=== PATIENT | male | born 1985 | race Caucasian/White ===

== ENCOUNTER 2017-02-16 22:04 | Emergency (ER) | payer SELFPAY ==
[~2017-02-16] VITALS: Ht 188 cm; Wt 81.6 kg
[~2017-02-16 22:04] MED LIST: ACYCLOVIR 400M400 MG PO; BACTRIM DS 8001 TAB PO; CEFZIL250 MG PO; CLARITIN10 MG OR; NOMEDS XX; PERCOCET 5/3251 EACH PO; PREDNISONE 20MG20 MG PO; SUBOXONE 8 MG-21 FIL SL
--- NOTE | 2017-02-16 23:52 | Emergency Room Report ---
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 N Clinical Suspician of Infection? Y Mental Status: 1 - Regular (Normal Baseline) Sepsis Risk:Low Sepsis Risk Have you (or family members/close friends) recently traveled outside the [place]? N If Yes, where/when: Have you had exposure to infectious disease within the past month? TB? Other? Specify: Source patient, RN notes reviewed, family, old records Exam Limitations no limitations Comment pt with area lt antecubital area progressive over the last few days - he admits hx of iv drug use but denied any recent - no fever/chills and no other lesions or rash Cardiac Chest Pain Chest pain indicative of cardiac No Timing/Duration this evening Severity moderate ALLERGIES Uncoded Allergies: PCN (I-RASH 02/16/17) Home Medications Reported Medications No Known Home Medications History Medical History General CAD? No Angina: No [place]: No Hypertension? Yes Hyperlipidemia? No CHF? No DVT? No PE? No COPD? No Asthma? No Anemia? No GERD? No Gastric ulcers? No GI Bleed? No Hernia? No Thyroid Problems? No Hypothyroidism? No CVA? No Seizures? No Diabetes? No Renal Insuffiency? No End Stage Renal Disease? No UTI? No Stones? No BPH? No GB Disease: No Nephritic Syndrome? No Asplenia? No Hepatitis? No Sickle Cell Disease? No Arthritis? No Migraines? No Cataracts? No Glaucoma? No MRSA? Yes HIV? No TB? No Anxiety? No Depression? No Cancer? No More? No Immunization Hx DT/Tetanus UNKNOWN Surgical Hx Previous Surgery?N Social History Smoking Hx Smoker: Current Every Day Smoker Tobacco: Yes Type Cigarettes Packs/day < 1 Pack Alcohol Alcohol: Yes Drugs none Review of Systems All Other Systems Reviewed and Negative Constitutional denies fever Eyes denies drainage ENT denies: ear pain, epistaxis, throat pain. Respiratory denies cough, denies shortness of breath, denies wheezing Cardiovascular denies chest pain, denies palpitations, denies syncope Gastrointestinal denies abdominal pain, denies diarrhea, denies vomiting Genitourinary denies: dysuria, frequency, hesitancy, hematuria. Musculoskeletal denies back pain, denies joint pain, denies joint swelling, denies neck pain Skin see HPI, denies rash, other Psychiatric/Neurological denies headache, denies seizure Physical Exam Vital Signs Vital Signs Date Time Temp Pulse Resp B/P Pulse O2 O2 Flow FiO2 Ox Delivery Rate 02/167 97.6 64 18 139/76 100 - WBC >12,000 or <4,000 or 10% bands? 2 or more SIRS Criteria Met? B/P:139/76 MAP:97 Creatinine >2.0? UA output<0.5ml/kg/hr for 2 hrs? Platelet count >100,000? Lactate >2.0mmol/1? INR >1.2 or PTT > than 60 sec? Evidence of Organ Dysfunction? Provider documented clinical suspician of infection? Y Sepsis Criteria Count: 1 Sepsis Risk: Low Sepsis Risk General Appearance no apparent distress Eye Exam - bilateral eye PERRL, bilateral eye EOMI Ear, Nose, Throat normal ENT inspection Neck supple Respiratory Status No: respiratory distress. Cardiovascular regular rate/rhythm, no gallop, no JVD, no murmur, no rub Peripheral Pulses Pulses normal Yes Gastrointestinal soft Extremities normal inspection, no calf tenderness Strength 4 Upper Ext (L), 4 Upper Ext (R), 4 Lower Ext (L), 4 Lower Ext (R) Neurologic alert, records management analyst II-XII nml as tested, no motor/sensory deficits Reflexes Reflexes normal No Mental status normal mood/affect Skin indurated cellulitis lt antecubital fossa Medical Decision Making LABS/Meds/Orders Pt receiving controlled substance in ED? No Results/Orders Laboratory Tests 02/16/17 0025: Lactic Acid 1.5 02/16/17 0025: Sodium 139, Potassium 3.6, Chloride 102, Carbon Dioxide 30, BUN 13, Creatinine 0.9, Estimated Creat Clear 139, Estimated GFR (MDRD) 99, Glucose 86, Calcium 8.6 , Total Bilirubin 0.2, AST 69 H, ALT 149 H, Alkaline Phosphatase 78, Total Protein 7.3, Albumin 3.8, Globulin 3.5 H, Albumin/Globulin Ratio 1.1, WBC 10.7, RBC 4.45 L, Hgb 13.8 L, Hct 40.4 L, MCV 90.7, RDW 12.5, Plt Count 241, MPV 7.9, Gran % 46.5, Gran # 5.0, Lymphocytes % 44.7, Monocytes % 5.8, Eosinophils % 2.5, Basophils % 0.5, Lymphocytes # 4.8 H, Monocytes # 0.6, Eosinophils # 0.3, Basophils # 0.1, PUBS MCHC 33.9, ESR Pending, MCH 30.7 Current Medication Orders Sig/Aparna Start time Last Medication Dose Route Stop Time Status Admin Vancomycin HCl 0 .STK-MED ONE 02/17 51 DC .ROUTE Sodium Chloride 250 ML .STK-MED ONE 02/17 50 DC IV Sodium Chloride 10 ML PRN PRN 02/16 2345 AC IV 02/17 2353 Vancomycin HCl See Dose ONCE ONE 02/16 2345 DC Insts (1) IV 02/16 2346 Vancomycin HCl 1,750 MG ONCE ONE 02/16 2345 CKDr 02/17 Sodium Chloride 250 ML IV 02/17 0144 0051 Dose Instructions: (1)Vancomycin HCl: CONTACT PHARMACY FOR DOSING Orders Procedure Date/time Status IV SALINE LOCK 02/16 2354 Active CULTURE, BLOOD 02/16 2354 Active LACTIC ACID 02/16 2354 Complete SED RATE 02/16 2354 Active C-REACTIVE PROTEIN 02/16 2354 Complete COMPLETE METABOLIC PANEL 02/16 2354 Complete CBC WITH AUTO DIFF 02/16 2354 Active Departure Departure Time of Disposition 0127 Disposition DC Home or Self Care(routine) Clinical Impression Primary Impression: Cellulitis Qualifiers: Site of cellulitis: extremity Site of cellulitis of extremity: upper extremity Laterality: left Qualified Code: L03.114 - Cellulitis of left upper limb Condition STABLE Patient Instructions DI for Cellulitis -- Adult Additional Instructions warm compresses and see pcp for follow up Discharge Counseling Counseled pt/family regarding diagnosis, test results, medications/RX, follow up needs Prescriptions Current Visit Scripts CEPHALEXIN (Keflex 500MG Capsule) 500 MG PO Q8H #30 CAP SULFAMETHOXAZOLE/TRIMETHOPRIM (Sulfamethoxazole-Tmp Ds Tablet) 1 TAB PO BID #20 TAB ED Critical Care Critical Care No at 0130
[2017-02-17 00:49] LABS: LYMPH # 4.8 K/mm3 (0.7-4.5); LYMPH % 44.7 % (10-50)
[2017-02-17 01:07] LABS: HEMOGLOBIN 13.8 g/dL (14.1-18.0)
[2017-02-17] MEDS ORDERED: SEPTRA DS 800 M1 TAB PO (01:29)
[2017-02-17] MEDS ORDERED: KEFLEX 500MG.500 MG PO (01:29)
[2017-02-17 01:54] VITALS: BP 151/74
== END 2017-02-17 01:54 | disposition home or self-care (01) ==
LOC: ER 22:04
PROVIDERS: Emergency Medicine
DX: L03.114 Cellulitis of left upper limb (principal); I10 Essential (primary) hypertension; Z72.0 Tobacco use
CPT/HCPCS: J3370

== ENCOUNTER 2017-05-11 11:45 | Emergency (ER) | payer SELFPAY ==
[~2017-05-11] VITALS: Ht 190.5 cm; Wt 81.6 kg
[~2017-05-11 11:45] MED LIST changes: +KEFLEX 500MG.500 MG PO; +SEPTRA DS 800 M1 TAB PO
--- OUTSIDE RECORDS SUMMARY | 2017-05-11 11:49 | External Medical Summary Rpt | CCD ---
Author Author [employer] Organization [employer] Address Unknown Phone Unavailable Purpose Continuity of Care Document - through 2016
--- OUTSIDE RECORDS SUMMARY | 2017-05-11 11:49 | External Medical Summary Rpt | CCD ---
Author Author , VIRGINIA COLEMAN Address Unknown Phone [email or web address] Immunization Name Date Rout CVX Reac Dose Comm Prov Is Faci e tion ent ider Refu lity Give sed n Hep 09-1 8 999 Hist H201 No H201 B, 9- oric ped/ 02 al adol Info rmat ion - Sour ce Unsp ecif ied Hep 08-0 8 999 Hist H201 No H201 B, 7-20 oric ped/ 02 al adol Info rmat ion - Sour ce Unsp ecif ied Td 08-0 9 999 Hist H201 No H201 (paz 7- oric lt), 02 al Info adso rmat rbed ion - Sour ce Unsp ecif ied
--- OUTSIDE RECORDS SUMMARY | 2017-05-11 11:49 | External Medical Summary Rpt ---
Author Author [place] [employer], STEVENANUEL [employer] Organization [employer] Address Unknown Phone Unavailable Results CBC W Auto Differential panel in Blood Observa Value Referen Units Interpr Notes Date tion ce etation Range Basophils 0 - 0.2 K/MM3 Normal No Feb 16 inform2016 [#/volume on in 12:25 AM ] in source Blood by data Automated count Basophils 0.1 - 2.0 % Normal No Feb 16 inform2016 leukocyte on in 12:25 AM s in source Blood by data Automated count Eosinophi 0.0 - 0.4 K/mm3 Normal No Feb 16 ls 2016 [#/volume on in 12:25 AM ] in source Blood by data Automated count Eosinophi 0.1 - % Normal No Feb 16 ls/100 12.0 inform2016 leukocyte on in 12:25 AM s in source Blood by data Automated count Granulocy 1.3 - 8.0 K/mm3 Normal No Feb 16 yoni 2016 [#/volume on in 12:25 AM ] in source Blood by data Automated count Granulocy 37.0 - % Normal No Feb 16 yoni/100 80.0 2016 leukocyte on in 12:25 AM s in source Blood by data Automated count Hematocri 42.0 - % Low No Feb 16 t [Volume 52.0 ati 2016 on in 12:25 AM Fraction] source of Blood data Hemoglobi 14.1 - g/dL Low No Feb 16 n 18.0 2016 [Mass/vol on in 12:25 AM ume] in source Blood data Lymphocyt 0.7 - 4.5 K/mm3 High No Feb 16 es inform2016 [#/volume on in 12:25 AM ] in source Unspecifi data ed specimen by Automated count Lymphocyt 10 - 50 % Normal No Feb 16 es inform2016 [#/volume on in 12:25 AM ] in source Unspecifi data ed specimen by Automated count Erythrocy 27 - 31.2 pg Normal No Feb 16 te mean 2016 corpuscul on in 12:25 AM ar source hemoglobi data n [Entitic mass] Erythrocy 31.8 - g/dl Normal No Feb 16 te mean 35.4 2016 corpuscul on in 12:25 AM ar source hemoglobi data n concentra tion [Mass/vol ume] by Automated count Erythrocy 82.2 - fl Normal No Feb 16 te mean 97.8 2016 corpuscul on in 12:25 AM ar volume source [Entitic data volume] by Automated count Monocytes 0.1 - 1.0 K/mm3 Normal No Feb 16 inform2016 [#/volume on in 12:25 AM ] in source Blood by data Automated count Monocytes 1.7 - 9.3 % Normal No Feb 16 /100 2016 leukocyte on in 12:25 AM s in source Blood by data Automated count Platelet 7.4 - fl Normal No Feb 16 mean 10.4 2016 volume on in 12:25 AM [Entitic source volume] data in Blood by Automated count Platelets 142 - 424 K/mm3 Normal No Feb 162016 [#/volume on in 12:25 AM ] in source Blood data Erythrocy 4.6 - 6.2 M/mm3 Low No Feb 16 yoni 2016 [#/volume on in 12:25 AM ] in source Amniotic data fluid Erythrocy 11.5 - % Normal No Feb 16 te 17.5 2016 distribut on in 12:25 AM ion width source [Entitic data volume] by Automated count Leukocyte 4.8 - K/MM3 Normal No Feb 16 s 10.8 2016 [#/volume on in 12:25 AM ] in source Blood data Erythrocyte sedimentation rate by Westergren method Observa Value Referen Units Interpr Notes Date tion ce etation Range Erythrocy 0 - 15 mm/hr Normal No Feb 16 te 2016 sedimenta on in 12:25 AM tion rate source by data Westergre n method Comprehensive metabolic 2000 panel in Serum or Plasma Observa Value Referen Units Interpr Notes Date tion ce etation Range Albumin/G 1.1 - 1.8 No Normal No Feb 16 lobulin informati 2016 [Mass on in on in 12:25 AM ratio] in source source Serum or data data Plasma Albumin 3.4 - 5.0 gm/dL Normal No Feb 16 [Mass/vol informati 2017 ume] in on in 12:25 AM Serum or source Plasma data Alkaline 46 - 116 U/L Normal No Feb 16 phosphata informati 2016 se on in 12:25 AM [Enzymati source c data activity/ volume] in Serum or Plasma Bilirubin 0.2 - 1.0 mg/dL Normal No Feb 16 .total informati 2016 [Mass/vol on in 12:25 AM ume] in source Serum or data Plasma Urea 7 - 18 mg/dL Normal No Feb 16 nitrogen informati 2016 [Mass/vol on in 12:25 AM ume] in source Serum or data Plasma Calcium 8.5 - mg/dL Normal No Feb 16 [Mass/vol 10.1 informati 2016 ume] in on in 12:25 AM Serum or source Plasma data Chloride 98 - 107 mmoL/L Normal No Feb 16 [Moles/vo informati 2016 lume] in on in 12:25 AM Serum or source Plasma data Carbon 21.0 - mmoL/L Normal No Feb 16 dioxide, 32.0 informati 2016 total on in 12:25 AM [Moles/vo source lume] in data Serum or Plasma Creatinin 0.70 - mg/dL Normal No Feb 16 e 1.30 informati 2016 [Mass/vol on in 12:25 AM ume] in source Serum or data Plasma Creatinin 50 - 200 ML/MIN Normal No Feb 16 e renal informati 2017 clearance on in 12:25 AM source predicted data by Cockcroft -Gault formula Estimated >60 ML/MIN No REFERENCE Feb 16 informati RANGE: 2017 glomerula on in >60 12:25 AM r source ML/MIN/1. filtratio data 73 SQUARE n rate METERSIf (GF this patient is -A merican, then multiply theresult by 1.210. Globulin 1.3 - 3.2 gm/dL High No Feb 16 [Mass/vol informati 2017 ume] in on in 12:25 AM Serum source data Glucose 74 - 106 mg/dL Normal No Feb 16 [Mass/vol informati 2016 ume] in on in 12:25 AM Serum or source Plasma data Potassium 3.5 - 5.1 mmoL/L Normal No Feb 16 informati 2016 [Moles/vo on in 12:25 AM lume] in source Serum or data Plasma Sodium 136 - 145 mmoL/L Normal No Feb 16 [Moles/vo informati 2017 lume] in on in 12:25 AM Serum or source Plasma data Aspartate 15 - 37 U/L High No Feb 16 informati 2016 aminotran on in 12:25 AM sferase source [Enzymati data c activity/ volume] in Serum or Plasma Alanine 12 - 78 U/L High No Feb 16 aminotran informati 2016 sferase on in 12:25 AM [Enzymati source c data activity/ volume] in Serum or Plasma Protein 6.4 - 8.2 gm/dL Normal No Feb 16 [Mass/vol informati 2017 ume] in on in 12:25 AM Serum or source Plasma data CRP Observa Value Referen Units Interpr Notes Date tion ce etation Range CRP 0.0 - 0.9 MG/DL Normal No Feb 16 inform2016 on in 12:25 AM source data Lactate [Moles/volume] in Blood Observa Value Referen Units Interpr Notes Date tion ce etation Range Lactate 0.4 - 2.0 mmol/L Normal No Feb 16 [Moles/vo informati 2017 lume] in on in 12:25 AM Blood source data
--- OUTSIDE RECORDS SUMMARY | 2017-05-11 11:49 | External Medical Summary Rpt | CCD ---
Author Author , VIRGINIA COLEMAN Address Unknown Phone [email or web address] Immunization Name Date Rout CVX Reac Dose [...]
--- OUTSIDE RECORDS SUMMARY | 2017-05-11 11:49 | External Medical Summary Rpt | CCD ---
Author Author , [place] Organization VIRGINIA Address Unknown Phone [email or web address] Care Team Providers Care Store Administrator Name Role Phone Kayleigh Huizar MD, Unavailable Unavailable Kayleigh Huizar MD Purpose Continuity of Care Document - 06-05-2013 through 2016 Problems Code Diagnosis DOS Provider Status 305.1 305.1 06-05-2013 [place] TOBACCO USE [facility] 351.0 351.0 06-05-2013 [facility] L03.90 CELLULITIS, UNSPECIFIED R07.89 OTHER CHEST PAIN R74.8 ABNORMAL LEVELS OF OTHER SERUM ENZYMES Allergies, Adverse Reactions, Alerts Type Allergy to substance Adverse Reaction to Substance Substance Reaction Severity NO KNOWN ALLERGIES Unknown Unknown Medications Na ND Rx Da Fi Fi Am Da Di Ph RX Ph St me C No te ll ll ou ys ag ar # ys at rm s nt no ma ic us Or Da si cy ia de te s n re d AC 00 12 0 No YC 09 -1 LO 38 2- Lo 94 20 ng R 30 13 er 40 1 0 Ac MG ti ve TA BL ET DE 00 12 0 No ED 05 -1 NI 40 2- Lo SO 01 20 ng NE 82 13 er 0 20 Ac ti MG ve TA BL ET Vital Signs 06-05-2013 02:43 Name Value Interpretat Reference Comment ion Range BP 60 mm[Hg] Diastolic BP Systolic 133 mm[Hg] Heart 57 /min Rate/Pulse O2% 98 % Respiratory 20 /min Rate 06-05-2013 02:22 Name Value Interpretat Reference Comment ion Range BP 90 mm[Hg] Diastolic BP Systolic 146 mm[Hg] Heart 62 /min Rate/Pulse O2% 98 % Respiratory 20 /min Rate Encounters Encounter Start End Date Code Location Performer Type Date Emergency KRYSTINA Huizar MD (ER) 3 01:32 3 02:44 [facility]
--- OUTSIDE RECORDS SUMMARY | 2017-05-11 11:49 | External Medical Summary Rpt ---
Author Author [employer], STEVENANUEL Production Organization [employer] Address [...]
--- OUTSIDE RECORDS SUMMARY | 2017-05-11 11:49 | External Medical Summary Rpt | CCD ---
Author Author , [place]IA Organization V[place] Address Unknown Phone [email or web address] Care Team Providers Care Press Feeder [employer] Name Role Phone Kayleigh Huizar MD, Unavailable Unavailable Kayleigh Huizar MD Purpose Continuity of Care Document - 06-05-2013 through 2016 Problems Code Diagnosis DOS Provider Status 305.1 305.1 06-05-2013 [place] TOBACCO USE [facility] 351.0 351.0 06-05-2013 [facility] L03.90 CELLULITIS, UNSPECIFIED R07.89 OTHER CHEST PAIN [...] Ac MG ti ve TA BL ET MS 00 12 0 No ED 05 -1 [...] Huizar MD (ER) 3 01:32 3 02:44 [facility]
[2017-05-11 12:51] VITALS: BP 144/90
[2017-05-11] MEDS ORDERED: BACTRIM DS 8001 TA1 PO (12:52)
[2017-05-11] MEDS ORDERED: BACTROBAN2% TP (12:52)
--- NOTE | 2017-05-11 12:52 | Urgent Treatment Center Report ---
History of Present Issue Date/Time Seen by Provider 05/11/17 1227 Visit Reason Pt arrived:Walked Presenting Problem:PT C/O ABCESS ON LEFT AC AND BACK OF HEAD. Location if Accident: Onset of symptoms date/time:/ or onset unknown for:MEDICAL HX UNKNOWN Have you (or family members/close friends) recently traveled outside the [place]? N If Yes, where/when: Have you had exposure to infectious disease within the past month? TB? Other? Specify: Patient states that he has had several abcesses prior to this visit. States that he has a history of IV drug use and noticed yesterday that he was having swelling again in his Left AC area and it was red and sore State that last night he tried to open it up and get it draining however was unsuccessful so he came in today to get seen and started on antibiotics if needed ALLERGIES Uncoded Allergies: PCN (I-RASH 02/16/17) History Medical History General CAD? No Angina: No [place]: No Hypertension? Yes Hyperlipidemia? No CHF? No DVT? No PE? No COPD? No Asthma? No Anemia? No GERD? No Gastric ulcers? No GI Bleed? No Hernia? No Thyroid Problems? No Hypothyroidism? No CVA? No Seizures? No Diabetes? No Renal Insuffiency? No UTI? No Stones? No BPH? No GB Disease: No Nephritic Syndrome? No Asplenia? No Hepatitis? No Sickle Cell Disease? No Arthritis? No Migraines? No Cataracts? No Glaucoma? No MRSA? Yes HIV? No TB? No Anxiety? No Depression? No Cancer? No More? No Immunization HX DT/Tetanus UNKNOWN Surgical Hx Previous Surgery?N Social History Smoking Hx Smoker: Current Every Day Smoker Tobacco: Yes Type Cigarettes Packs/day < 1 Pack Alcohol Alcohol: Yes Review of Systems All Other Systems Reviewed and Negative Comment Abcess on left ac area and back of neck Physical Exam Vital Signs Vital Signs Date Time Temp Pulse Resp B/P Pulse O2 O2 Flow FiO2 Ox Delivery Rate 05/11 1251 98.1 85 20 144/90 98 05/11 1200 98.1 85 20 144/90 98 General Appearance normal appearance, WD/WN, no apparent distress Neck small abcess area on back of neck draining noted Respiratory Status Yes: trachea midline, chest symmetrical, non tender chest. No: respiratory distress. Lung Sounds bilateral: normal breath sounds, lungs clear. Cardiovascular normal exam, regular rate/rhythm, no peripheral edema Extremities Pain, swelling and redness of left ac area with drainage of puss noted, culture collected and sent to lab, area approximately 3x3 and state that he reports that he is an iv drug user and area arose after he missed his vein Neurologic alert, normal exam, oriented x 3 Medical Decision Making LABS/Meds/Orders Pt receiving controlled substance in ED? No Results/Orders Orders Procedure Date/time Status ABCESS CULTURE 05/11 1214 Active Procedures Incision and Drainage Incision and Drainage Risks/benefits discussed with pt/guardian? Yes Problem type Abcess Location Left ac, back of neck Size cm 3.0 Anesthesia None I & D Procedure Simple, betadine prep, sterile drapes applied, Pus large amount, Cultured, Irrigation ml- (50), Sterile Dressing Applied. Departure Departure Time of Disposition 1248 Disposition DC Home or Self Care(routine) Clinical Impression Primary Impression: Abscess Condition STABLE Referrals Akin Neville MD: Today after leaving ER MELANIE QUICK MD Patient Instructions Cellulitis, DI for Boils Additional Instructions Make sure you call and follow up with Dr Quick/Jamin in the surgical department as advised in the office today Take medication as prescribed Over the counter Motrin or Tylenol as needed for pain Return if needed FOllow up with family doctor to get results of your wound culture that was collected today If you see any streaks, warmth or worsening of symptoms go straight to ER *Start antibiotic(s) immediately and be sure to take as ordered for the FULL length of time although you may be feeling better or start to see improvement in the next 24-48 hours *Monitor closely. Outlined redness so that you can monitor easier. Follow up immediately for new or worsening symptoms including but not limited to redness, swelling, streaking from site fever or chills. *Warm compress 15 minutes 3-4 times day *Never squeeze or pop these on your own. Seek immediate medical attention next time this occurs *Monitor Temp. Tylenol every 4 hours as needed and ibuprofen every 6 hours as needed (as long as your primary care doctor has told you that it is ok to take both. For fever, aches, pain. ER if no less that 101 despite Tylenol and ibuprofen Discharge Counseling Counseled pt/family regarding diagnosis, medications/RX, home care, follow up needs Prescriptions Current Visit Scripts SULFAMETHOXAZOLE W/TRIMETHOPRI (Bactrim Ds Tab) 1 TABLET PO BID #20 TAB MUPIROCIN 2% (Bactroban Oint) 1 STEVEN TP BID #1 TUBE at 1256
[2017-05-12] MEDS ORDERED: CLINDAMYCIN HC300 MG PO (13:52)
== END 2017-05-11 12:54 | disposition home or self-care (01) ==
LOC: UTC 11:45
PROC: 0H94XZZ Drainage of Neck Skin, External Approach (ICD-10-PCS; principal; 2017-05-11)
DX: L02.11 Cutaneous abscess of neck (principal); Z88.0 Allergy status to penicillin; I10 Essential (primary) hypertension; F17.210 Nicotine dependence, cigarettes, uncomplicated

== ENCOUNTER 2017-05-12 13:25 | Emergency (ER) | payer OTHER ==
[~2017-05-12] VITALS: Ht 190.5 cm; Wt 88.9 kg
[~2017-05-12 13:25] MED LIST changes: +BACTRIM DS 8001 TA1 PO; +BACTROBAN2% TP
--- OUTSIDE RECORDS SUMMARY | 2017-05-12 13:43 | External Medical Summary Rpt ---
[...] - 2.0 % Normal No Feb 16 / inform2016 leukocyte on in 12:25 AM s [...]
--- OUTSIDE RECORDS SUMMARY | 2017-05-12 13:43 | External Medical Summary Rpt | CCD ---
Author Author , VIR[place]IA Organization VIR[place]IA Address Unknown Phone [email or web address] Care Team Providers Care [employer] Rep Name Role Phone Kayleigh Huizar MD, Unavailable Unavailable Kayleigh Huizar MD Purpose Continuity of Care Document - 06-05-2013 through 2016 Problems Code Diagnosis DOS Provider Status 305.1 305.1 06-05-2013 [place] TOBACCO USE [facility] 351.0 351.0 06-05-2013 [facility] L03.90 CELLULITIS, UNSPECIFIED R07.89 OTHER [...] Ac MG ti ve TA BL ET SC 00 12 0 No ED 05 -1 [...] Huizar MD (ER) 3 01:32 3 02:44 [facility]
--- OUTSIDE RECORDS SUMMARY | 2017-05-12 13:43 | External Medical Summary Rpt | CCD ---
Author Author , [place]IA Organization VIR[place]IA Address Unknown Phone [email or web address] Care Team Providers Care Business Editor Name Role Phone Kayleigh Huizar MD, Unavailable Unavailable Kayleigh Huizar MD Purpose Continuity of Care Document - 06-05-2013 through 2016 Problems Code Diagnosis DOS Provider Status 305.1 305.1 06-05-2013 [place] TOBACCO USE [facility] 351.0 351.0 06-05-2013 [facility] L03.90 CELLULITIS, UNSPECIFIED R07.89 OTHER CHEST [...] Ac MG ti ve TA BL ET [place] 00 12 0 No ED 05 -1 [...] Huizar MD (ER) 3 01:32 3 02:44 [facility]
--- OUTSIDE RECORDS SUMMARY | 2017-05-12 13:43 | External Medical Summary Rpt | CCD ---
Author Author , VIRGINIA COLEMAN Address Unknown Phone .[employer] Immunization Name Date Rout CVX Reac Dose Comm Prov Is Faci e tion ent ider Refu lity Give sed n Hep 09-1 8 999 Hist H201 No H201 B, 9- oric ped/ 02 al adol Info rmat ion - Sour ce Unsp ecif ied Td 08-0 9 999 Hist H201 No H201 (paz 7-20 oric lt), 02 al Info adso rmat rbed ion - Sour ce Unsp ecif ied Hep 08-0 8 999 Hist H201 No H201 B, -20 oric ped/ 02 al adol Info rmat ion - Sour ce Unsp ecif ied
--- OUTSIDE RECORDS SUMMARY | 2017-05-12 13:43 | External Medical Summary Rpt | CCD ---
Author Author , VIRGINIA COLEMAN Address Unknown Phone [email or web address] Immunization Name Date Rout CVX Reac Dose [...]
--- NOTE | 2017-05-12 13:44 | Emergency Room Report ---
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 N Clinical Suspician of Infection? N Mental Status: 1 - Regular (Normal Baseline) Sepsis Risk:Low Sepsis Risk Have you (or family members/close friends) recently traveled outside the [place]? N If Yes, where/when: Have you had exposure to infectious disease within the past month? TB? Other? Specify: Patient is brought in custody of police for medical clearance he states he has had an I and D on an area of heroin injection on his LEFT arm that has gotten better as I indeed yesterday. States he does not know when his last tetanus shot was she states he has not picked up the antibiotics from yesterday as of yet. He states that he has an area of swelling on the back of his neck that is gotten worse and has been intermittently draining some possible. He denies any other complaints ALLERGIES Coded Allergies: Penicillins (05/12/17) Home Medications Active Scripts SULFAMETHOXAZOLE W/TRIMETHOPRI (Bactrim Ds Tab) 1 TABLET PO BID #20 TAB Prov: 05/11/17 MUPIROCIN 2% (Bactroban Oint) 1 STEVEN TP BID #1 TUBE Prov: 05/11/17 History Medical History General CAD? No Angina: No [place]: No Hypertension? Yes Hyperlipidemia? No CHF? No DVT? No PE? No COPD? No Asthma? No Anemia? No GERD? No Gastric ulcers? No GI Bleed? No Hernia? No Thyroid Problems? No Hypothyroidism? No CVA? No Seizures? No Diabetes? No Renal Insuffiency? No End Stage Renal Disease? No UTI? No Stones? No BPH? No GB Disease: No Nephritic Syndrome? No Asplenia? No Hepatitis? No Sickle Cell Disease? No Arthritis? No Migraines? No Cataracts? No Glaucoma? No MRSA? Yes HIV? No TB? No Anxiety? No Depression? No Cancer? No More? No Immunization Hx Ped.Immunizations UTD Yes DT/Tetanus UNKNOWN Surgical Hx Previous Surgery?N Social History Smoking Hx Smoker: Current Every Day Smoker Tobacco: Yes Type N/A Packs/day < 1 Pack Alcohol Alcohol: Yes Review of Systems All Other Systems Reviewed and Negative Physical Exam Vital Signs Vital Signs Date Time Temp Pulse Resp B/P Pulse O2 O2 Flow FiO2 Ox Delivery Rate 05/12 1332 98.2 88 18 170/88 99 General Appearance: Nontoxic Head: Normocephalic, without obvious abnormality, atraumatic. Eyes: conjunctiva/corneas clear ENT: Mucous membranes moist. Neck: No jugular venous distention. Back patient's neck he has an abscess around 1 cm Cardiac: regular rate and rhythm Lungs: Clear to auscultation bilaterally Abdomen: Nontender, Nondistended, positive bowel sounds, no rebound : No CVA tenderness Extremities: no edema Musculoskeletal: No chest wall tenderness Patient's LEFT arm has an area that has been I and D and is open there is no active purulence he states the swelling is much better than it had been. Multiple areas of track lazo Whether active sites of infection noted Skin: No rashes or lesions to exposed skin. Neurologic: Alert. No gross focal deficits Psychiatric: Normal affect ([place], Marcus) General Appearance normal appearance Respiratory Status No: respiratory distress. Cardiovascular normal exam Neurologic alert Medical Decision Making LABS/Meds/Orders Pt receiving controlled substance in ED? No Results/Orders Current Medication Orders Sig/Aparna Start time Last Medication Dose Route Stop Time Status Admin Lidocaine/Epinephrine 1 ML ONCE ONE 05/12 1415 DC 05/12 SC 05/12 1416 1419 Diphtheria/Pertussis/ 0 .STK-MED ONE 05/12 1409 DC Tetanus Vacc IM Lidocaine/Epinephrine 0 .STK-MED ONE 05/12 1409 DC .ROUTE Clindamycin HCl 0 .STK-MED ONE 05/12 1408 DC PO Clindamycin HCl 300 MG ONCE ONE 05/12 1345 DC 05/12 PO 05/12 1346 1411 Tetanus/Diphtheria 0.5 ML ONCE ONE 05/12 1345 DC 05/12 Toxoids Adsorbed IM 05/12 1346 1413 Procedures Incision and Drainage Incision and Drainage Risks/benefits discussed with pt/guardian? Yes Problem type Abcess Location neck Size cm 1.0 Anesthesia Lidocaine 2% Blade Size 11 I & D Procedure no: Complex. Progress Kamlesh was sterilely prepped and draped with Betadine was anesthetized with 2 mL of lidocaine with epinephrine and it was I and D 1 cm incision parallel material was drained and packing was placed. The drainage was consolidated and it looked like it might be consistent with a cyst that got infected. I told the patient to make sure he takes all his antibiotics and that he may need to have follow-up on the area if there is a cyst present. Departure Departure Time of Disposition 1433 Disposition DC Home or Self Care(routine) Clinical Impression Primary Impression: Abscess Secondary Impressions: Heroin abuse Condition STABLE Patient Instructions Chemical Dependency (Narcotic) (Alternative Therapy), DI for Skin Abscess Additional Instructions Keep packing in for 24 hours taking her antibiotic as prescribed Discharge Counseling Counseled pt/family regarding diagnosis, medications/RX, home care, follow up needs Prescriptions Current Visit Scripts Clindamycin Hcl (Clindamycin 300MG) 300 MG PO QID #28 CAP ED Critical Care Critical Care No at 1438
[2017-05-12] MEDS ORDERED: CLINDAMYCIN HC300 MG PO (13:52)
[2017-05-12 14:52] VITALS: BP 152/88
== END 2017-05-12 14:52 | disposition home or self-care (01) ==
LOC: ER 13:25
PROC: 0H94XZZ Drainage of Neck Skin, External Approach (ICD-10-PCS; principal; 2017-05-12)
DX: L02.11 Cutaneous abscess of neck (principal); Z23 Encounter for immunization; I10 Essential (primary) hypertension; F17.210 Nicotine dependence, cigarettes, uncomplicated